=== PATIENT | male | born 2000 | race Caucasian/White ===

== ENCOUNTER 2025-03-24 18:28 | Emergency (ER) | payer OTHER ==
[~2025-03-24] VITALS: Ht 177.8 cm; Wt 109.1 kg
[2025-03-24 18:30] VITALS: TEMP 97.9
[2025-03-24 20:30] VITALS: BP 133/75; PULSE 80; RESP 18; O2SAT 99
[2025-03-24] MEDS: IBUPROFEN 600 MG TABLET PO ONE (20:53)
== END 2025-03-24 22:08 | disposition home or self-care (01) ==
LOC: EMS 18:28
DX: S63.501A Unspecified sprain of right wrist, initial encounter (principal); F12.90 Cannabis use, unspecified, uncomplicated; X58.XXXA Exposure to other specified factors, initial encounter; Y93.89 Activity, other specified; Y92.89 Other specified places as the place of occurrence of the external cause; Y99.0 Civilian activity done for income or pay
CPT/HCPCS: 99284; 73090-TC; 73110-TC; Z7502; Z7610